=== PATIENT | female | born 1985 | race African-American/Black ===

== ENCOUNTER 2018-06-30 21:51 | Emergency (ER) | payer SELFPAY | END 2018-06-30 22:35 | disposition home or self-care (01) | LOC: SCSER 21:51 | DX: J11.1 Influenza due to unidentified influenza virus with other respiratory manifestations (principal) | CPT/HCPCS: 99283 ==

== ENCOUNTER 2018-10-24 17:32 | Emergency (ER) | payer SELFPAY ==
[2018-10-24] MEDS ORDERED: Fluorescein Opthalmic Strip ONE (17:48)
[2018-10-24] MEDS ORDERED: Proparacaine 0.5% Opth 15 ML BOT ONE (17:48)
== END 2018-10-24 18:48 | disposition home or self-care (01) ==
LOC: ERS 17:32
DX: S05.92XA Unspecified injury of left eye and orbit, initial encounter (principal); W22.8XXA Striking against or struck by other objects, initial encounter
CPT/HCPCS: 99283

== ENCOUNTER 2018-10-26 17:13 | Emergency (ER) | payer SELFPAY ==
[~2018-10-26 17:13] MED LIST: ISOVUE-370 76%-LOCM 1 ML ONE
[2018-10-26] MEDS ORDERED: Proparacaine 0.5% Opth 15 ML BOT ONE (17:22)
[2018-10-26] MEDS ORDERED: Fluorescein Opthalmic Strip ONE (17:25)
[2018-10-26] MEDS ORDERED: HYDROcodone/Acetaminophen 10/325 mg Tablet ONE (18:29)
[2018-10-26 20:23] LABS: BHCG - Serum Negative (NEGATIVE); Pregs Control Background? CLEAR/WHITE (CLR/WHITE); Pregs Control Bar Appear? YES (CONTROL BAR)
[2018-10-26 20:48] LABS: Pregnancy Test - Urine (BHCG) Negative (Negative); Pregu Control Background? CLEAR/WHITE (CLR/WHITE); Pregu Control Bar Appear? YES (CONTROL BAR)
[2018-10-26 20:49] LABS: Specific Gravity 1.022 (1.002-1.036)
--- NOTE | 2018-10-26 21:14 | CT ---
CT ORBITS WITH CONTRAST: 10/26/18 Multiple axial tomograms obtained through the orbits with IV enhancement. 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 Orbits are unremarkable. There is no evidence of retro-orbital mass or fluid collection. The globes a ppear normal and symmetric. No periorbital edema or fluid collection seen. No evidence of abscess melanie ntified. Paranasal sinuses appear clear. There is an odontogenic cystic lesion involving the anterior maxilla to the left at the site of first and second incisors measuring 1.7 cm. Recommend dental oral surgical consultation regarding this fin ding. IMPRESSION: 1. No evidence of fluid or abscess collection involving the left orbit. 2. An odontogenic cystic lesion of the maxilla anteriorly on the left involving the first and se cond incisors. Recommend dental or oral surgical consultation. POS: OSIEL
== END 2018-10-26 21:31 | disposition home or self-care (01) ==
LOC: ERS 17:13
DX: H20.9 Unspecified iridocyclitis (principal)
CPT/HCPCS: 36415; 70481; 81025; 84703; Q9966

== ENCOUNTER 2018-11-21 17:19 | Emergency (ER) | payer SELFPAY ==
[2018-11-21 17:57] LABS: #Eosinphils 0.1 thou/uL (0.0-0.7); #Lymphocytes 1.7 thou/uL (1.20-3.40); #Monocytes 0.4 thou/uL (0.11-0.59); #Neutrophils 4.1 thou/uL (1.40-6.50); %Basophils 0.3 % (0.0-1.0); %Eosinophils 1.4 % (0.0-10.0); %Lymphocytes 26.3 % (21.0-51.0); %Monocytes 6.9 % (0.0-10.0); %Neutrophils 65.1 % (42.0-75.0); Hemoglobin 12.6 g/dL (12.0-16.0); Mean Corpuscular HGB CONC 31.9 g/dL (32.0-36.0); Mean Corpuscular Hemoglobin 27.5 pg (27.0-31.0); Mean Corpuscular Volume 86.2 fL (78.0-98.0); Mean Platelet Volume 7.8 fL (7.4-10.4); Platelet Count 312 thou/uL (130-400); RBC Distribution Width 13.2 % (11.5-14.5); Red Blood Cell (RBC) Count 4.59 mill/uL (4.20-5.40); White Blood Cell (WBC) Count 6.3 thou/uL (4.8-10.8)
[2018-11-21 17:59] LABS: Bilirubin Negative (Negative); Blood, Urine Negative (Negative); Clarity CLOUDY (Clear); Glucose, Urine (Dipstick) Negative (Negative); Leukocyte Small (Negative); Nitrite Negative (Negative); Protein, Urine (Dipstick) Negative (Neg-Trace); Specific Gravity, Urine 1.023 (1.002-1.036)
[2018-11-21 18:02] LABS: Bacteria/HPF 1+ HPF (None Seen); Hyaline Casts/LPF 4-6 HYALINE CAST LPF (0-3 Hyaline); Pathc Cast-AUWi Flag 1.49 (0-2.49); RBC/HPF 0-3 HPF (0-3)
[2018-11-21 18:04] LABS: Pregnancy Test - Urine (BHCG) Negative (Negative); Pregu Control Background? CLEAR/WHITE (CLR/WHITE); Pregu Control Bar Appear? YES (CONTROL BAR); Specific Gravity 1.023 (1.002-1.036)
[2018-11-21 18:18] LABS: ALT (SGPT) 13 U/L (8-55); AST (SGOT) 12 U/L (5-34); Albumin 3.9 g/dL (3.5-5.0); Alkaline Phosphatase 88 U/L (40-150); Anion Gap 11 mmol/L (10-20); BUN (Urea Nitrogen) 11 mg/dL (7.0-18.7); Bilirubin, Total 0.4 mg/dL (0.2-1.2); Calc. Creatinine Clearance 0 mL/min (70-130); Calcium 9.1 mg/dL (7.8-10.44); Carbon Dioxide 23 mmol/L (22-29); Chloride 107 mmol/L (98-107); Estimated GFR-MDRD Greater than 90; Globulin 2.9 g/dL (2.4-3.5); Glucose 85 mg/dL (70-105); Lipase 31 U/L (8-78); Protein, Total 6.8 g/dL (6.0-8.3); Sodium 137 mmol/L (136-145)
[2018-11-21] MEDS ORDERED: Azithromycin 250 MG TAB ONE ×2 (19:16→19:19)
[2018-11-21] MEDS ORDERED: Lidocaine 1% (PF) 30 ML VIAL ONE (19:16)
[2018-11-21] MEDS ORDERED: cefTRIAXone\\ROCEPHIN 250 MG VIAL ONE (19:16)
--- NOTE | 2018-11-21 19:48 | ULT ---
Pelvic sonogram transabdominal and transvaginal imaging with duplex evaluation HISTORY: Pelvic pain. FINDINGS: Urinary bladder is decompressed. Uterus is retroverted. 7.4 cm length. Hypoechoic well-circ umscribed fibroid in left side of uterus, 3.5 cm. Contraceptive bar in endometrial cavity. Endometrium is 0.3 cm. Physiologic amount of free fluid within the cul-de-sac. Right ovary is 3.1 cm and left is 2.7 cm. Eac h contains follicles and demonstrates good color and spectral Doppler flow. IMPRESSION: Retroverted uterus with IUD. Myometrial fibroid on the left, 3.5 cm. Small amount of free fluid. Physiologic. No evidence of ovarian torsion or mass.
[2018-11-23 17:26] LABS: Chlamydia by PCR Not Detected (NotDetected); GC by PCR Not Detected (NotDetected)
== END 2018-11-21 20:35 | disposition home or self-care (01) ==
LOC: ERS 17:19
DX: N39.0 Urinary tract infection, site not specified (principal); R10.30 Lower abdominal pain, unspecified
CPT/HCPCS: 36415; 76856; 80053; 81003; 81015; 81025; 83690; 85025; 87480; 87491; 87510; 87591; 87660; 96372; J0696; J2001

== ENCOUNTER 2019-06-02 07:15 | Emergency (ER) | payer BC, SELFPAY ==
--- NOTE | 2019-06-02 08:02 | RAD ---
XR Forearm Rt 2 View STANDARD History: Trauma Comparison: None. Findings: Forearm is intact. No acute fracture or malalignment. No elbow joint effusion. Impression: No acute osseous abnormality.
== END 2019-06-02 08:18 | disposition home or self-care (01) ==
LOC: ERS 07:15
DX: S16.1XXA Strain of muscle, fascia and tendon at neck level, initial encounter (principal); S50.11XA Contusion of right forearm, initial encounter; V40.5XXA Car driver injured in collision with pedestrian or animal in traffic accident, initial encounter